=== PATIENT | female | born 1950 | race Caucasian/White ===

== ENCOUNTER → 2017-02-12 | Outpatient (CLI) | payer OTHER ==
[2017-02-12 11:52] LABS: HEMOGLOBIN 15.1 g/dL (11.7-16.4)
[2017-02-12 12:05] LABS: BLOOD UREA NITROGEN 16 mg/dL (7-18)
[2017-02-12 12:10] LABS: ASPARTATE AMINO TRANSFERASE 38 U/L (15-37)
== END | disposition home or self-care (01) ==
LOC: LAB 11:30
PROVIDERS: ATTEND Nurse Practitioner Family
DX: Z13.220 Encounter for screening for lipoid disorders (principal); Z00.00 Encounter for general adult medical examination without abnormal findings; R35.0 Frequency of micturition; I10 Essential (primary) hypertension
CPT/HCPCS: 36415; 80053; 81001; 85025

== ENCOUNTER 2017-04-30 21:33 | Emergency (ER) | payer OTHER ==
[~2017-04-30] VITALS: Ht 165.1 cm; Wt 72.6 kg
[2017-04-30] MEDS ORDERED: CARV3.122 PO (22:08)
[2017-04-30] MEDS ORDERED: CLON0.1T PO (22:08)
[2017-04-30] MEDS ORDERED: FLUC50TA3 PO (22:08)
[2017-04-30 23:00] VITALS: BP 153/88
== END 2017-04-30 23:29 | disposition home or self-care (01) ==
LOC: ED 22:14
DX: R51 Headache (principal); I10 Essential (primary) hypertension
CPT/HCPCS: 99283

== ENCOUNTER 2017-08-03 01:22 | Emergency (ER) | payer OTHER ==
[~2017-08-03] VITALS: Ht 165.1 cm; Wt 73.6 kg
[~2017-08-03 01:22] MED LIST: CARV3.122 PO; CLON0.1T PO; FLUC50TA3 PO
[2017-08-03] MEDS ORDERED: CARVEDILOL 12.5 MG TABLET PO ONE (02:00)
[2017-08-03] MEDS ORDERED: IRBE75TA10 PO (02:08)
[2017-08-03] MEDS ORDERED: CARV12.52 PO (02:08)
[2017-08-03] MEDS ORDERED: FLEC100T PO (02:08)
[2017-08-03 02:18] VITALS: BP 161/94
== END 2017-08-03 02:50 | disposition home or self-care (01) ==
LOC: ED 02:34
DX: I48.2 Chronic atrial fibrillation (principal); Z88.0 Allergy status to penicillin; Z88.8 Allergy status to other drugs, medicaments and biological substances; I10 Essential (primary) hypertension
CPT/HCPCS: 93005; 99283

== ENCOUNTER 2017-10-11 01:56 | Emergency (ER) | payer OTHER ==
[~2017-10-11] VITALS: Ht 165.1 cm; Wt 73.5 kg
[~2017-10-11 01:56] MED LIST changes: +CARV12.52 PO; +FLEC100T PO; +IRBE75TA10 PO
[2017-10-11] MEDS ORDERED: AMLODIPINE 5 MG TABLET PO ONE (02:30)
[2017-10-11] MEDS ORDERED: NITROGLYCERIN OINT 2%, 1GM TP ONE ×2 (02:30→02:47)
[2017-10-11] MEDS ORDERED: IBUPROFEN 200 MG TABLET PO ONE (02:30)
[2017-10-11] MEDS ORDERED: IBUPROFEN 200 MG TABLET ONE (02:47)
[2017-10-11 02:48] LABS: HEMATOCRIT 44.5 % (34.6-47.8); WHITE BLOOD COUNT 6.7 x10^3/uL (3.4-10)
[2017-10-11 03:00] LABS: BLOOD UREA NITROGEN 27 mg/dL (7-18)
[2017-10-11 03:06] LABS: IS PT STATUS REG ER OR PRE ER? YES
[2017-10-11 04:23] VITALS: BP 131/94
== END 2017-10-11 04:26 | disposition home or self-care (01) ==
LOC: ED 02:26
DX: I10 Essential (primary) hypertension (principal); I48.91 Unspecified atrial fibrillation; Z87.891 Personal history of nicotine dependence; Z88.0 Allergy status to penicillin
CPT/HCPCS: 36415; 80048; 82040; 84484; 85025; 93005; 99285

== ENCOUNTER 2017-10-12 03:22 | Emergency (ER) | payer OTHER ==
[~2017-10-12] VITALS: Ht 165.1 cm; Wt 73.7 kg
[2017-10-12] MEDS ORDERED: SODIUM CHLORIDE 0.9% 1,000ML IVBOLUS ONE (04:00)
[2017-10-12] MEDS ORDERED: DIPHENHYDRAMINE 50 MG/ML, 1ML IVPush ONE (04:00)
[2017-10-12] MEDS ORDERED: METOCLOPRAMIDE 5 MG/ML, 2ML IVPush ONE (04:00)
[2017-10-12] MEDS ORDERED: DIPHENHYDRAMINE 50 MG/ML, 1ML ONE (04:04)
[2017-10-12] MEDS ORDERED: METOCLOPRAMIDE 5 MG/ML, 2ML ONE (04:04)
[2017-10-12] MEDS ORDERED: OXYcodone/APAP 5/325MG TABLET ONE (05:20)
[2017-10-12] MEDS ORDERED: OXYcodone/APAP 5/325MG TABLET PO ONE (05:30)
[2017-10-12] MEDS ORDERED: NAPROXEN 500 MG TABLET PO ONE (05:30)
[2017-10-12 05:58] VITALS: BP 99/55
== END 2017-10-12 05:59 | disposition home or self-care (01) ==
LOC: ED 03:59
DX: I10 Essential (primary) hypertension (principal); R51 Headache; I48.91 Unspecified atrial fibrillation
CPT/HCPCS: 70450; 96361; 96374; 96375; 99284; J1200; J2765; J7030

== ENCOUNTER 2017-10-24 19:20 | Inpatient (IN) | payer OTHER ==
[~2017-10-24] VITALS: Ht 165.1 cm; Wt 71.4 kg
[2017-10-24 21:11] LABS: HEMATOCRIT 41.1 % (34.6-47.8); HEMOGLOBIN 13.8 g/dL (11.7-16.4); WHITE BLOOD COUNT 7.7 x10^3/uL (3.4-10)
[2017-10-24 21:25] LABS: BLOOD UREA NITROGEN 18 mg/dL (7-18)
[2017-10-24 21:30] LABS: IS PT STATUS REG ER OR PRE ER? YES
[2017-10-24] MEDS ORDERED: ASPIRIN 81 MG TABLET CHEW PO ONE (22:00)
[2017-10-24] MEDS ORDERED: HEPARIN 25,000 UNITS/500ML PMX 500 ML IV PRN (22:00)
[2017-10-24] MEDS ORDERED: HEPARIN 5,000 UNITS/ML, 1ML IV PRN (22:00)
[2017-10-24] MEDS ORDERED: HEPARIN 5,000 UNITS/ML, 1ML IV ONE (22:00)
[2017-10-24] MEDS ORDERED: HEPARIN 25,000 UNITS/500ML PMX 500 ML ONE (22:21)
[2017-10-24] MEDS ORDERED: ASPIRIN 81 MG TABLET CHEW ONE (22:23)
[2017-10-24] MEDS ORDERED: HEPARIN 5,000 UNITS/ML, 1ML ONE (22:33)
[2017-10-25 00:52] VITALS: BP 108/83
[2017-10-25] MEDS: SODIUM CHLORIDE 0.9% 1,000 ML IV SCH ×4 (01:28→20:15)
[2017-10-25] MEDS ORDERED: ONDANSETRON ODT 4 MG PO PRN (01:30)
[2017-10-25] MEDS ORDERED: NITROGLYCERIN 0.4 MG BOTTLE (25 TABS) SL PRN ×2 (01:30)
[2017-10-25] MEDS ORDERED: NITROGLYCERIN 0.4 MG/SPRAY SL PRN (01:30)
[2017-10-25 02:34] LABS: IS PT STATUS REG ER OR PRE ER? NO
[2017-10-25] MEDS ORDERED: ACETAMINOPHEN 325 MG TABLET PO PRN (03:00)
[2017-10-25 04:59] LABS: HEMATOCRIT 37.2 % (34.6-47.8); HEMOGLOBIN 12.5 g/dL (11.7-16.4); WHITE BLOOD COUNT 7.7 x10^3/uL (3.4-10)
[2017-10-25 05:10] LABS: ASPARTATE AMINO TRANSFERASE 62 U/L (15-37); BLOOD UREA NITROGEN 19 mg/dL (7-18)
[2017-10-25 07:36] VITALS: BP 107/76
[2017-10-25] MEDS ORDERED: METOPROLOL TARTRATE 25 MG TABLET PO SCH (09:00)
[2017-10-25] MEDS ORDERED: FENTANYL PF 100 MCG/2ML ONE (13:09)
[2017-10-25] MEDS ORDERED: TICAGRELOR 90 MG TABLET ONE (13:09)
[2017-10-25] MEDS ORDERED: MIDAZOLAM 1 MG/ML, 5ML ONE (13:09)
[2017-10-25] MEDS ORDERED: VERAPAMIL 2.5 MG/ML, 2ML ONE (13:09)
[2017-10-25] MEDS ORDERED: HEPARIN 1,000 UNITS/ML, 10ML ONE (13:10)
[2017-10-25] MEDS ORDERED: LIDOCAINE 2%, 20ML ONE (13:10)
[2017-10-25] MEDS ORDERED: BIVALIRUDIN 250 MG ONE (13:10)
[2017-10-25 15:00] VITALS: BP 98/58
[2017-10-25 18:30] VITALS: BP 95/64
[2017-10-25 20:11] VITALS: BP 106/73
[2017-10-25] MEDS: METOPROLOL TARTRATE 25 MG TABLET PO SCH (20:14)
[2017-10-25] MEDS ORDERED: ATORVASTATIN 40 MG TABLET PO SCH (21:00)
[2017-10-26 01:30] VITALS: BP 112/75
[2017-10-26] MEDS: SODIUM CHLORIDE 0.9% 1,000 ML IV SCH (04:55)
[2017-10-26 08:35] VITALS: BP 123/81
[2017-10-26] MEDS: METOPROLOL TARTRATE 25 MG TABLET PO SCH (09:00)
[2017-10-26] MEDS ORDERED: LISINOPRIL 5 MG TABLET PO SCH (09:00)
[2017-10-26] MEDS ORDERED: METO25TA35 PO (10:30)
[2017-10-26] MEDS ORDERED: ATOR40TA78 PO (10:30)
[2017-10-26] MEDS ORDERED: ASPI-515 PO (10:36)
== END 2017-10-26 12:10 | disposition home or self-care (01) | DRG 282 ==
LOC: ED 20:15 → EDIP 23:29 → 5SO 10-25 00:40 → DCLOUNGE 10-26 11:48
PROVIDERS: ADMIT Surgery; ATTEND Family Medicine
PROC: 4A023N7 Measurement of Cardiac Sampling and Pressure, Left Heart, Percutaneous Approach (ICD-10-PCS; principal; 2017-10-25)
PROC: B2111ZZ Fluoroscopy of Multiple Coronary Arteries using Low Osmolar Contrast (ICD-10-PCS; 2017-10-25)
PROC: B2151ZZ Fluoroscopy of Left Heart using Low Osmolar Contrast (ICD-10-PCS; 2017-10-25)
PROC: 03HY32Z Insertion of Monitoring Device into Upper Artery, Percutaneous Approach (ICD-10-PCS; 2017-10-25)
DX: I21.4 Non-ST elevation (NSTEMI) myocardial infarction (principal); I48.2 Chronic atrial fibrillation; I11.9 Hypertensive heart disease without heart failure; I25.2 Old myocardial infarction; Z87.891 Personal history of nicotine dependence; Z79.82 Long term (current) use of aspirin; V43.52XA Car driver injured in collision with other type car in traffic accident, initial encounter; Y93.89 Activity, other specified; Y92.481 Parking lot as the place of occurrence of the external cause; Y99.8 Other external cause status
CPT/HCPCS: 36415; 71010; 80048; 80053; 82040; 83036; 83690; 83735; 84100; 84443; 84484; 85025; 85520; 85610; 85730; 93005; 93458; 96365; 96366; 99156; C1769; C1894; J0583; J1644; J2250; J3010; J3490; J7030; Q9967

== ENCOUNTER 2017-11-05 09:30 | Inpatient (IN) | payer OTHER ==
[~2017-11-05] VITALS: Ht 165.1 cm; Wt 62.8 kg
[~2017-11-05 09:30] MED LIST changes: +ASPI-515 PO; +ATOR40TA78 PO; +METO25TA35 PO
[2017-11-05] MEDS ORDERED: PLEASE ENTER HEIGHT AND WEIGHT MC SCH (11:00)
[2017-11-05] MEDS ORDERED: ACETAMINOPHEN 650 MG/20.3 ML UDC PO PRN (11:00)
[2017-11-05] MEDS ORDERED: BISACODYL 5 MG EC TABLET PO PRN (11:00)
[2017-11-05] MEDS ORDERED: SOTALOL 80MG TABLET PO SCH (11:00)
[2017-11-05] MEDS ORDERED: ZOLPIDEM 5MG TABLET PO PRN (11:00)
[2017-11-05] MEDS ORDERED: SOTALOL 80MG TABLET ONE (11:48)
[2017-11-05 12:11] VITALS: BP 136/72
[2017-11-05] MEDS ORDERED: AMIODARONE 200 MG TABLET ONE (12:30)
[2017-11-05] MEDS: PLEASE ENTER PATIENTS HEIGHT MC SCH ×2 (12:30→19:58)
[2017-11-05] MEDS: AMIODARONE 200 MG TABLET PO SCH (12:33)
[2017-11-05 13:13] LABS: ANION GAP 7 mmol/L (5-15); CALCIUM 9.5 mg/dL (8.5-10.1); CHLORIDE 104 mmol/L (98-107); CREATININE 0.82 mg/dL (0.55-1.02)
[2017-11-05 13:23] LABS: FREE T4 (FREE THYROXINE) 1.06 ng/dL (0.76-1.46)
[2017-11-05 18:53] VITALS: BP 126/83
[2017-11-05] MEDS: APIXABAN 5 MG TABLET PO SCH (19:59)
[2017-11-05] MEDS: ATORVASTATIN 40 MG TABLET PO SCH (19:59)
[2017-11-05] MEDS: SODIUM CHLORIDE FLUSH 10ML SYR IVF SCH (19:59)
[2017-11-06 01:48] VITALS: BP 120/82
[2017-11-06] MEDS: ACETAMINOPHEN 325 MG TABLET PO PRN ×2 (02:12→14:28)
[2017-11-06] MEDS: PLEASE ENTER PATIENTS HEIGHT MC SCH (03:44)
[2017-11-06 06:48] VITALS: BP 114/75
[2017-11-06] MEDS: SODIUM CHLORIDE FLUSH 10ML SYR IVF SCH ×2 (08:34→20:14)
[2017-11-06] MEDS: ASPIRIN 81 MG TABLET EC PO SCH (08:34)
[2017-11-06] MEDS: APIXABAN 5 MG TABLET PO SCH ×2 (08:34→20:18)
[2017-11-06] MEDS: AMIODARONE 200 MG TABLET PO SCH ×2 (08:34→20:19)
[2017-11-06] MEDS: FUROSEMIDE 20 MG TABLET PO SCH (08:35)
[2017-11-06 13:45] VITALS: BP 125/83
[2017-11-06 20:10] VITALS: BP 123/84
[2017-11-06] MEDS: ATORVASTATIN 40 MG TABLET PO SCH (20:18)
[2017-11-07 02:00] VITALS: BP 93/69
[2017-11-07 07:20] VITALS: BP 127/91
[2017-11-07] MEDS: FUROSEMIDE 20 MG TABLET PO SCH (09:39)
[2017-11-07] MEDS: AMIODARONE 200 MG TABLET PO SCH (09:39)
[2017-11-07] MEDS: ASPIRIN 81 MG TABLET EC PO SCH (09:40)
[2017-11-07] MEDS: APIXABAN 5 MG TABLET PO SCH ×2 (09:40→22:15)
[2017-11-07] MEDS: SODIUM CHLORIDE FLUSH 10ML SYR IVF SCH ×2 (09:40→22:16)
[2017-11-07 12:20] VITALS: BP 121/83
[2017-11-07 20:38] VITALS: BP 102/78
[2017-11-07] MEDS: ATORVASTATIN 40 MG TABLET PO SCH (22:15)
[2017-11-08 00:23] VITALS: BP 120/79
[2017-11-08] MEDS: ASPIRIN 81 MG TABLET EC PO SCH (06:24)
[2017-11-08 07:15] VITALS: BP 92/52
[2017-11-08] MEDS ORDERED: AMIODARONE 200 MG TABLET PO SCH (09:00)
[2017-11-08] MEDS: APIXABAN 5 MG TABLET PO SCH (09:02)
[2017-11-08] MEDS: FUROSEMIDE 20 MG TABLET PO SCH (09:02)
[2017-11-08] MEDS: SODIUM CHLORIDE FLUSH 10ML SYR IVF SCH (09:03)
[2017-11-08] MEDS ORDERED: APIX5TAB PO (11:40)
[2017-11-08] MEDS ORDERED: FURO20TA3 PO (11:40)
[2017-11-08] MEDS ORDERED: CARV12.52 PO (11:42)
== END 2017-11-08 13:15 | disposition home or self-care (01) | DRG 309 ==
LOC: 5SO 09:42
PROVIDERS: ADMIT Internal Medicine Cardiovascular Disease; ATTEND Internal Medicine Cardiovascular Disease
DX: I48.0 Paroxysmal atrial fibrillation (principal); D68.69 Other thrombophilia; I42.9 Cardiomyopathy, unspecified; I51.81 Takotsubo syndrome; I45.10 Unspecified right bundle-branch block; E78.5 Hyperlipidemia, unspecified; I10 Essential (primary) hypertension; Z79.82 Long term (current) use of aspirin; Z79.899 Other long term (current) drug therapy; Z87.891 Personal history of nicotine dependence; I25.2 Old myocardial infarction; Z88.0 Allergy status to penicillin; Z88.1 Allergy status to other antibiotic agents
CPT/HCPCS: 36415; 80048; 84439; 84443; 85014; 85018; 93005; 93306

== ENCOUNTER → 2018-03-17 | Outpatient (CLI) | payer OTHER ==
[~2018-03-17] MED LIST changes: +APIX5TAB PO; +FURO20TA3 PO
== END | disposition home or self-care (01) ==
LOC: CVU 13:45
PROVIDERS: ATTEND Internal Medicine Cardiovascular Disease
DX: I07.1 Rheumatic tricuspid insufficiency (principal); I10 Essential (primary) hypertension; E78.5 Hyperlipidemia, unspecified
CPT/HCPCS: 93306

== ENCOUNTER → 2018-03-19 | Outpatient (CLI) | payer OTHER ==
[2018-03-19 10:22] LABS: ALANINE AMINOTRANSFERASE 42 U/L (12-78); ALBUMIN 3.5 g/dL (3.4-5.0); ANION GAP 3 mmol/L (5-15); CALCIUM 8.7 mg/dL (8.5-10.1); CHLORIDE 110 mmol/L (98-107); CREATININE 0.72 mg/dL (0.55-1.02)
[2018-03-19 10:25] LABS: ALKALINE PHOSPHATASE 77 U/L (45-117); BILIRUBIN,TOTAL 0.4 mg/dL (0.2-1.0); CHOL/HDL RATIO 1.7; CHOLESTEROL, TOTAL 137 mg/dL (140-239); HDL CHOL % 60 % (28-40); HDL CHOLESTEROL (DIRECT) 82 mg/dL (40-60); LDL CHOLESTEROL,CALCULATED 43 mg/dL (54-169); LDL/HDL RATIO 0.5 (0.5-3.0); TOTAL PROTEIN 6.8 g/dL (6.4-8.2); TRIGLYCERIDES 59 mg/dL (50-200); VLDL CHOLESTEROL 12 mg/dL (0-25)
== END ==
LOC: LAB 09:48
PROVIDERS: ATTEND Internal Medicine Cardiovascular Disease
DX: I10 Essential (primary) hypertension (principal); I48.0 Paroxysmal atrial fibrillation; I51.81 Takotsubo syndrome
CPT/HCPCS: 36415; 80053; 80061

== ENCOUNTER → 2018-10-06 | Outpatient (CLI) | payer OTHER | END | disposition home or self-care (01) | LOC: CARD 10:40 | PROVIDERS: ATTEND Internal Medicine Cardiovascular Disease | DX: I48.0 Paroxysmal atrial fibrillation (principal); I11.9 Hypertensive heart disease without heart failure | CPT/HCPCS: 93017 ==

== ENCOUNTER 2018-10-30 15:36 | Emergency (ER) | payer OTHER ==
[~2018-10-30] VITALS: Ht 165.1 cm; Wt 71.4 kg
[~2018-10-30 15:36] MED LIST changes: -CLON0.1T PO; +CLON0.1T22 PO
[2018-10-30 15:42] VITALS: BP 184/110
== END 2018-10-30 17:07 | disposition home or self-care (01) ==
LOC: ED 15:59
DX: S80.02XA Contusion of left knee, initial encounter (principal); I48.91 Unspecified atrial fibrillation; I10 Essential (primary) hypertension; Z87.891 Personal history of nicotine dependence; W01.0XXA Fall on same level from slipping, tripping and stumbling without subsequent striking against object, initial encounter; Y93.89 Activity, other specified; Y92.89 Other specified places as the place of occurrence of the external cause; Y99.8 Other external cause status
CPT/HCPCS: 99283

== ENCOUNTER → 2019-03-27 | Outpatient (CLI) | payer OTHER ==
[~2019-03-27] MED LIST changes: +DABI150C PO; +FLEC50TA25 PO
[2019-03-27 11:42] LABS: BASOPHILS # (AUTO) 0.02 x10^3/uL (0-0.1); BASOPHILS % (AUTO) 1 % (0-1); EOSINOPHILS # (AUTO) 0.13 x10^3/uL (0-0.4); EOSINOPHILS % (AUTO) 3 % (1-7); LYMPHOCYTES % (AUTO) 38 % (22-44); MD NO; MEAN CORPUSCULAR HEMOGLOBIN 29.7 pg (27.0-34.8); MEAN CORPUSCULAR HGB CONC 32.2 g/dL (32.4-35.8); MEAN CORPUSCULAR VOLUME 92.1 fL (80-100); MEAN PLATELET VOLUME 8.8 fL (7.4-10.4); MONOCYTES # (AUTO) 0.35 x10^3/uL (0.2-0.8); MONOCYTES % (AUTO) 9 % (2-9); NEUTROPHILS # (AUTO) 1.99 x10^3/uL (1.8-6.8); NEUTROPHILS % (AUTO) 50 % (42-75); PLATELET COUNT 214 x10^3/uL (130-400); RED BLOOD COUNT 4.82 x10^6/uL (3.82-5.3); RED CELL DISTRIBUTION WIDTH 14.6 % (9.6-15.2)
[2019-03-27 12:04] LABS: MICROSCOPIC NOT IND
[2019-03-27 12:13] LABS: CULTURE INDICATED? NO
[2019-03-27 12:55] LABS: ALANINE AMINOTRANSFERASE 21 U/L (12-78); ALBUMIN 3.8 g/dL (3.4-5.0); ANION GAP 8 mmol/L (5-15); CALCIUM 8.8 mg/dL (8.5-10.1); CHLORIDE 108 mmol/L (98-107)
[2019-03-27 13:03] LABS: ALKALINE PHOSPHATASE 54 U/L (45-117); BILIRUBIN,TOTAL 0.6 mg/dL (0.2-1.0); CHOL/HDL RATIO 2.7; CHOLESTEROL, TOTAL 249 mg/dL (140-239); CREATININE 0.81 mg/dL (0.55-1.02); FREE T4 (FREE THYROXINE) 0.89 ng/dL (0.76-1.46); HDL CHOL % 37 % (28-40); HDL CHOLESTEROL (DIRECT) 92 mg/dL (40-60); LDL CHOLESTEROL,CALCULATED 146 mg/dL (54-169); LDL/HDL RATIO 1.6 (0.5-3.0); TOTAL PROTEIN 7.2 g/dL (6.4-8.2); TRIGLYCERIDES 56 mg/dL (50-200); VLDL CHOLESTEROL 11 mg/dL (0-25)
== END | disposition home or self-care (01) ==
LOC: LAB 11:22
PROVIDERS: ATTEND Nurse Practitioner Family
DX: Z00.00 Encounter for general adult medical examination without abnormal findings (principal); I10 Essential (primary) hypertension; E78.5 Hyperlipidemia, unspecified; I48.0 Paroxysmal atrial fibrillation
CPT/HCPCS: 36415; 80053; 80061; 81003; 82306; 84439; 84443; 85025

== ENCOUNTER 2019-04-27 09:54 | Day surgery (SDC) | payer OTHER ==
[~2019-04-27] VITALS: Ht 165.1 cm; Wt 69.1 kg
[2019-04-27] MEDS ORDERED: LIDOCAINE 2%, 20ML ONE (10:31)
== END 2019-04-27 12:06 | disposition home or self-care (01) ==
LOC: CACL 09:54
PROVIDERS: ATTEND Internal Medicine Cardiovascular Disease
DX: Z45.010 Encounter for checking and testing of cardiac pacemaker pulse generator [battery] (principal); I48.0 Paroxysmal atrial fibrillation; I11.9 Hypertensive heart disease without heart failure; I25.2 Old myocardial infarction; Z79.01 Long term (current) use of anticoagulants; Z79.899 Other long term (current) drug therapy; Z88.0 Allergy status to penicillin; Z88.8 Allergy status to other drugs, medicaments and biological substances
CPT/HCPCS: 33285; 33286; C1764

== ENCOUNTER 2019-05-25 15:58 | Outpatient (CLI) | payer OTHER | END 2019-05-25 23:59 | disposition home or self-care (01) | LOC: CFH 15:58 | PROVIDERS: ATTEND Orthopaedic Surgery Adult Reconstructive Orthopaedic Surgery | DX: S83.281A Other tear of lateral meniscus, current injury, right knee, initial encounter (principal); M25.461 Effusion, right knee; X58.XXXA Exposure to other specified factors, initial encounter; Y93.89 Activity, other specified; Y92.89 Other specified places as the place of occurrence of the external cause; Y99.8 Other external cause status ==

== ENCOUNTER → 2019-11-07 | Outpatient (CLI) | payer OTHER ==
[2019-11-07 18:13] LABS: CRYPTOSPORIDIUM ANTIGEN Negative (Negative)
[2019-11-07 18:22] LABS: OCCULT BLOOD NEGATIVE (NEGATIVE)
[2019-11-07 18:28] LABS: STOOL FOR LEUKOCYTES NONE SEEN (NEGATIVE)
== END | disposition home or self-care (01) ==
LOC: LAB 08:07
PROVIDERS: ATTEND Family Medicine
DX: K59.00 Constipation, unspecified (principal); R10.13 Epigastric pain
CPT/HCPCS: 82272; 87046; 87328; 87329; 87427; 89055

== ENCOUNTER 2019-11-09 13:38 | Emergency (ER) | payer OTHER ==
[~2019-11-09] VITALS: Ht 165.1 cm; Wt 71.5 kg
--- NOTE | 2019-11-09 14:06 | NUR ---
PT REPORTS SLIP AND FALL AT MIDNIGHT 11/08, STATES INTERMITTENT NAUSEA AND INCREASED HEADACHE WHEN TURNING TO THE LEFT SIDE. DENIES KO AT THAT TIME. DR. SCHUSTER AT BEDSIDE TO SEE PATIENT. AWAITING ORDERS.
--- NOTE | 2019-11-09 14:17 | NUR ---
REPORT FROM BELÉN
[2019-11-09 14:22] LABS: ALBUMIN 3.8 g/dL (3.4-5.0); ANION GAP 6 mmol/L (5-15); BASOPHILS # (AUTO) 0.02 x10^3/uL (0-0.1); BASOPHILS % (AUTO) 0 % (0-1); CALCIUM 8.6 mg/dL (8.5-10.1); CHLORIDE 107 mmol/L (98-107); CREATININE 0.85 mg/dL (0.55-1.02); EOSINOPHILS # (AUTO) 0.12 x10^3/uL (0-0.4); EOSINOPHILS % (AUTO) 3 % (1-7); LYMPHOCYTES # (AUTO) 1.79 x10^3/uL (1-3.4); LYMPHOCYTES % (AUTO) 43 % (22-44); MD NO; MEAN CORPUSCULAR HEMOGLOBIN 30.8 pg (27.0-34.8); MEAN CORPUSCULAR HGB CONC 33.5 g/dL (32.4-35.8); MEAN PLATELET VOLUME 9.4 fL (7.4-10.4); MONOCYTES # (AUTO) 0.41 x10^3/uL (0.2-0.8); MONOCYTES % (AUTO) 10 % (2-9); NEUTROPHILS # (AUTO) 1.79 x10^3/uL (1.8-6.8); NEUTROPHILS % (AUTO) 43 % (42-75); PLATELET COUNT 221 x10^3/uL (130-400); RED BLOOD COUNT 4.93 x10^6/uL (3.82-5.3); RED CELL DISTRIBUTION WIDTH 14.6 % (9.6-15.2)
--- NOTE | 2019-11-09 14:54 | NUR ---
FLOAT RN: PT RESTING IN ROOM. NO ACUTE DISTRESS NOTED. VS STABLE. CALL LIGHT IN PLACE. WILL CONTINUE TO MONITOR WHILE PRIMARY RN IS ON BREAK.
[2019-11-09 14:56] VITALS: BP 164/95
--- NOTE | 2019-11-09 15:18 | NUR ---
Patient/Caregiver given discharge instructions and they have confirmed that they understand the instructions. Patient ambulatory with steady gait.
== END 2019-11-09 15:20 | disposition home or self-care (01) ==
LOC: ED 14:25
DX: S06.0X0A Concussion without loss of consciousness, initial encounter (principal); R51 Headache; I25.2 Old myocardial infarction; I10 Essential (primary) hypertension; I48.91 Unspecified atrial fibrillation; W01.0XXA Fall on same level from slipping, tripping and stumbling without subsequent striking against object, initial encounter; Y93.89 Activity, other specified; Y92.89 Other specified places as the place of occurrence of the external cause; Y99.8 Other external cause status
CPT/HCPCS: 36415; 70450; 80048; 82040; 85025; 93005; 99284

== ENCOUNTER → 2020-03-14 | Outpatient (CLI) | payer OTHER ==
[~2020-03-14] MED LIST changes: -IRBE75TA10 PO; +IRBE75TA6 PO
== END | disposition home or self-care (01) ==
LOC: CFH 12:48
PROVIDERS: ATTEND Nurse Practitioner Family
DX: I37.1 Nonrheumatic pulmonary valve insufficiency (principal); I10 Essential (primary) hypertension; I51.81 Takotsubo syndrome
CPT/HCPCS: 93306

== ENCOUNTER 2020-04-08 03:06 | Inpatient (IN) | payer OTHER, MEDICARE ==
[~2020-04-08] VITALS: Ht 165.1 cm; Wt 74.2 kg
[2020-04-08] MEDS ORDERED: SODIUM CHLORIDE FLUSH 10ML SYR IVF ONE (03:30)
--- NOTE | 2020-04-08 03:43 | NUR ---
iv site started, labs drawn. monitors applied, siderails up x2, call light within reach
[2020-04-08 03:50] LABS: BASOPHILS # (AUTO) 0.03 x10^3/uL (0-0.1); BASOPHILS % (AUTO) 1 % (0-1); EOSINOPHILS # (AUTO) 0.17 x10^3/uL (0-0.4); EOSINOPHILS % (AUTO) 3 % (1-7); LYMPHOCYTES # (AUTO) 2.06 x10^3/uL (1-3.4); LYMPHOCYTES % (AUTO) 41 % (22-44); MD NO; MEAN CORPUSCULAR HEMOGLOBIN 30.4 pg (27.0-34.8); MEAN CORPUSCULAR HGB CONC 32.9 g/dL (32.4-35.8); MEAN CORPUSCULAR VOLUME 92.2 fL (80-100); MEAN PLATELET VOLUME 9.5 fL (7.4-10.4); MONOCYTES # (AUTO) 0.48 x10^3/uL (0.2-0.8); MONOCYTES % (AUTO) 10 % (2-9); NEUTROPHILS # (AUTO) 2.34 x10^3/uL (1.8-6.8); NEUTROPHILS % (AUTO) 46 % (42-75); PLATELET COUNT 221 x10^3/uL (130-400); RED BLOOD COUNT 5.14 x10^6/uL (3.82-5.3); RED CELL DISTRIBUTION WIDTH 14.9 % (9.6-15.2)
[2020-04-08 04:00] LABS: ALBUMIN 3.9 g/dL (3.4-5.0); ANION GAP 6 mmol/L (5-15); CALCIUM 8.8 mg/dL (8.5-10.1); CHLORIDE 105 mmol/L (98-107); CREATININE 0.92 mg/dL (0.55-1.02)
[2020-04-08] MEDS ORDERED: DILTIAZEM 5 MG/ML, 5ML ONE (04:00)
[2020-04-08] MEDS ORDERED: DILTIAZEM 5 MG/ML, 5ML IV ONE (04:00)
--- NOTE | 2020-04-08 04:03 | NUR ---
PT MEDICATED PER MAR
[2020-04-08 04:04] LABS: TROPONIN I < 0.015 ng/mL (0.000-0.045)
[2020-04-08] MEDS ORDERED: METO25TA35 PO (04:05)
--- NOTE | 2020-04-08 05:11 | NUR ---
PTT UP TO RR WITH STEADY GAIT
[2020-04-08] MEDS ORDERED: SODIUM CHLORIDE 0.9% 1,000 ML IV SCH (05:23)
[2020-04-08] MEDS ORDERED: BISACODYL 10 MG SUPP PR PRN (05:30)
[2020-04-08] MEDS ORDERED: ONDANSETRON ODT 4 MG PO PRN (05:30)
[2020-04-08] MEDS ORDERED: morphine SULFATE 10 MG/ML, 1ML IVPush PRN (05:30)
[2020-04-08] MEDS ORDERED: ACETAMINOPHEN 325 MG TABLET PO PRN (05:30)
[2020-04-08] MEDS ORDERED: POLYETHYLENE GLYCOL 17 GM PACKET PO PRN (05:30)
[2020-04-08] MEDS ORDERED: ONDANSETRON 2MG/ML, 2ML IVPush PRN (05:30)
[2020-04-08] MEDS ORDERED: DOCUSATE 100 MG CAPSULE PO PRN (05:30)
[2020-04-08] MEDS ORDERED: PROMETHAZINE 25 MG/ML, 1ML IM PRN (05:30)
[2020-04-08] MEDS ORDERED: OXYcodone IR 5MG TABLET PO PRN (05:30)
[2020-04-08] MEDS ORDERED: hydrALAzine 20 MG/ML, 1ML IVPush PRN (05:30)
[2020-04-08] MEDS ORDERED: METOPROLOL TARTRATE 25 MG TAB PO SCH (06:00)
[2020-04-08 06:29] VITALS: BP 161/93
[2020-04-08 06:37] LABS: FREE T4 (FREE THYROXINE) 1.09 ng/dL (0.76-1.46); TROPONIN I < 0.015 ng/mL (0.000-0.045)
[2020-04-08] MEDS: HEPARIN 5,000 UNITS/ML, 1ML SQ SCH ×3 (06:48→20:06)
[2020-04-08 07:13] LABS: MICROSCOPIC NOT IND
[2020-04-08 07:37] VITALS: BP 143/84
[2020-04-08] MEDS: FLECAINIDE 50MG TABLET PO SCH ×2 (08:45→20:06)
[2020-04-08 11:10] LABS: TROPONIN I < 0.015 ng/mL (0.000-0.045)
[2020-04-08 12:42] VITALS: BP 135/81
[2020-04-08] MEDS: CARVEDILOL 6.25 MG TABLET PO SCH (17:53)
[2020-04-08] MEDS: CARVEDILOL 12.5 MG TABLET PO SCH (17:53)
[2020-04-08 19:42] VITALS: BP 110/73
[2020-04-09] MEDS: HEPARIN 5,000 UNITS/ML, 1ML SQ SCH (01:40)
[2020-04-09 04:37] VITALS: BP 117/60
[2020-04-09] MEDS: CARVEDILOL 12.5 MG TABLET PO SCH (04:45)
[2020-04-09] MEDS: CARVEDILOL 6.25 MG TABLET PO SCH (04:45)
[2020-04-09 07:06] LABS: CHLORIDE 108 mmol/L (98-107)
[2020-04-09 07:08] VITALS: BP 124/79
[2020-04-09 07:15] LABS: ALANINE AMINOTRANSFERASE 23 U/L (12-78); ALBUMIN 3.2 g/dL (3.4-5.0); ALKALINE PHOSPHATASE 47 U/L (45-117); ANION GAP 6 mmol/L (5-15); BILIRUBIN,TOTAL 0.5 mg/dL (0.2-1.0); CALCIUM 8.4 mg/dL (8.5-10.1); CHOL/HDL RATIO 2.8; CHOLESTEROL, TOTAL 235 mg/dL (140-239); CREATININE 0.72 mg/dL (0.55-1.02); HDL CHOL % 36 % (28-40); HDL CHOLESTEROL (DIRECT) 84 mg/dL (40-60); LDL CHOLESTEROL,CALCULATED 125 mg/dL (54-169); LDL/HDL RATIO 1.5 (0.5-3.0); MEAN CORPUSCULAR HEMOGLOBIN 30.7 pg (27.0-34.8); MEAN CORPUSCULAR HGB CONC 33.2 g/dL (32.4-35.8); MEAN CORPUSCULAR VOLUME 92.4 fL (80-100); MEAN PLATELET VOLUME 9.6 fL (7.4-10.4); PLATELET COUNT 175 x10^3/uL (130-400); RED BLOOD COUNT 4.31 x10^6/uL (3.82-5.3); RED CELL DISTRIBUTION WIDTH 15.1 % (9.6-15.2); TOTAL PROTEIN 6.6 g/dL (6.4-8.2); TRIGLYCERIDES 131 mg/dL (50-200); VLDL CHOLESTEROL 26 mg/dL (0-25)
[2020-04-09 07:17] LABS: BASOPHILS # (AUTO) 0.03 x10^3/uL (0-0.1); BASOPHILS % (AUTO) 1 % (0-1); EOSINOPHILS # (AUTO) 0.14 x10^3/uL (0-0.4); EOSINOPHILS % (AUTO) 4 % (1-7); LYMPHOCYTES # (AUTO) 1.81 x10^3/uL (1-3.4); LYMPHOCYTES % (AUTO) 46 % (22-44); MD NO; MONOCYTES # (AUTO) 0.34 x10^3/uL (0.2-0.8); MONOCYTES % (AUTO) 9 % (2-9); NEUTROPHILS # (AUTO) 1.63 x10^3/uL (1.8-6.8); NEUTROPHILS % (AUTO) 41 % (42-75)
[2020-04-09] MEDS ORDERED: CARV6.2512 PO (07:19)
[2020-04-09] MEDS: FLECAINIDE 50MG TABLET PO SCH (08:07)
== END 2020-04-09 10:53 | disposition home or self-care (01) | DRG 309 ==
LOC: ED 04:34 → EDIP 04:55 → 5SO 06:26
PROVIDERS: ADMIT Internal Medicine; ATTEND Internal Medicine
DX: I48.0 Paroxysmal atrial fibrillation (principal); I51.81 Takotsubo syndrome; D68.69 Other thrombophilia; R07.9 Chest pain, unspecified; I10 Essential (primary) hypertension; I37.1 Nonrheumatic pulmonary valve insufficiency; Z80.1 Family history of malignant neoplasm of trachea, bronchus and lung; Z82.49 Family history of ischemic heart disease and other diseases of the circulatory system; Z87.891 Personal history of nicotine dependence
CPT/HCPCS: 36415; 71045; 80048; 80053; 80061; 81003; 82040; 83036; 83735; 84439; 84443; 84484; 85025; 93005; 93308; 93321; 93325; G0378; J1644; J7030

== ENCOUNTER → 2020-06-13 | Outpatient (CLI) | payer OTHER ==
[~2020-06-13] MED LIST changes: +CARV6.2512 PO; +REGADENOSON 0.4 MG/5 ML SYRINGE ONE
== END | disposition home or self-care (01) ==
LOC: RAD 12:53
PROVIDERS: ATTEND Nurse Practitioner Family
DX: I51.81 Takotsubo syndrome (principal); R07.9 Chest pain, unspecified
CPT/HCPCS: 78452; 93017; A9502; J2785

== ENCOUNTER → 2020-06-19 | Outpatient (CLI) | payer OTHER ==
[~2020-06-19] MED LIST changes: +OMNIPAQUE 350 MG/ML, 150 ML BOTTLE ONE; -REGADENOSON 0.4 MG/5 ML SYRINGE ONE
== END | disposition home or self-care (01) ==
LOC: CFH 13:49
PROVIDERS: ATTEND Internal Medicine Cardiovascular Disease
DX: I48.91 Unspecified atrial fibrillation (principal); D17.79 Benign lipomatous neoplasm of other sites
CPT/HCPCS: 75572; 82565; Q9967

== ENCOUNTER → 2020-06-21 | Outpatient (CLI) | payer OTHER ==
[~2020-06-21] MED LIST changes: -OMNIPAQUE 350 MG/ML, 150 ML BOTTLE ONE
[2020-06-21 09:49] LABS: BASOPHILS # (AUTO) 0.03 x10^3/uL (0-0.1); BASOPHILS % (AUTO) 1 % (0-1); EOSINOPHILS # (AUTO) 0.16 x10^3/uL (0-0.4); EOSINOPHILS % (AUTO) 4 % (1-7); LYMPHOCYTES # (AUTO) 1.67 x10^3/uL (1-3.4); LYMPHOCYTES % (AUTO) 40 % (22-44); MD NO; MEAN CORPUSCULAR HEMOGLOBIN 29.9 pg (27.0-34.8); MEAN CORPUSCULAR HGB CONC 32.3 g/dL (32.4-35.8); MEAN CORPUSCULAR VOLUME 92.7 fL (80-100); MEAN PLATELET VOLUME 8.9 fL (7.4-10.4); MONOCYTES # (AUTO) 0.41 x10^3/uL (0.2-0.8); MONOCYTES % (AUTO) 10 % (2-9); NEUTROPHILS # (AUTO) 1.95 x10^3/uL (1.8-6.8); NEUTROPHILS % (AUTO) 46 % (42-75); PLATELET COUNT 212 x10^3/uL (130-400); RED CELL DISTRIBUTION WIDTH 14.5 % (9.6-15.2)
[2020-06-21 09:56] LABS: INTERNATIONAL NORMALIZED RATIO 0.97 (0.93-1.1)
[2020-06-21 10:01] LABS: ALANINE AMINOTRANSFERASE 23 U/L (12-78); ANION GAP 5 mmol/L (5-15); CHLORIDE 108 mmol/L (98-107); CREATININE 0.82 mg/dL (0.55-1.02)
[2020-06-21 10:27] LABS: ALKALINE PHOSPHATASE 68 U/L (45-117); BILIRUBIN,TOTAL 0.5 mg/dL (0.2-1.0); CHOL/HDL RATIO 2.6; CHOLESTEROL, TOTAL 251 mg/dL (140-239); HDL CHOL % 38 % (28-40); HDL CHOLESTEROL (DIRECT) 96 mg/dL (40-60); LDL CHOLESTEROL,CALCULATED 143 mg/dL (54-169); LDL/HDL RATIO 1.5 (0.5-3.0); T4 (THYROXINE) 9.1 mcg/dL (4.8-13.9); TOTAL PROTEIN 7.5 g/dL (6.4-8.2); TRIGLYCERIDES 58 mg/dL (50-200); VLDL CHOLESTEROL 12 mg/dL (0-25)
== END | disposition home or self-care (01) ==
LOC: RAD 09:34
PROVIDERS: ATTEND Internal Medicine Cardiovascular Disease
DX: Z01.810 Encounter for preprocedural cardiovascular examination (principal); Z11.59 Encounter for screening for other viral diseases; I10 Essential (primary) hypertension; R63.5 Abnormal weight gain; I48.0 Paroxysmal atrial fibrillation
CPT/HCPCS: 36415; 71046; 80053; 80061; 84436; 84443; 84480; 84481; 85025; 85610; 85730; 87635

== ENCOUNTER 2020-06-27 05:41 | Observation (INO) | payer OTHER ==
[~2020-06-27] VITALS: Ht 165.1 cm; Wt 69.4 kg
[2020-06-27] MEDS ORDERED: SODIUM CHLORIDE 0.9% 1,000 ML IV SCH (06:31)
[2020-06-27] MEDS ORDERED: DABI150C PO (06:43)
[2020-06-27] MEDS ORDERED: CARV3.1212 PO (06:43)
[2020-06-27] MEDS ORDERED: METO50TA82 PO (06:43)
[2020-06-27] MEDS ORDERED: MULT1TAB57 PO (06:45)
[2020-06-27 06:46] VITALS: BP 146/86
[2020-06-27] MEDS ORDERED: SODIUM CHLORIDE 0.9% 1,000 ML IV ONE (07:00)
[2020-06-27] MEDS ORDERED: FENTANYL PF 250 MCG/5ML ONE (07:57)
[2020-06-27] MEDS ORDERED: MIDAZOLAM 1 MG/ML, 2ML ONE (07:57)
[2020-06-27] MEDS ORDERED: PROPOFOL 50 ML ONE (07:57)
[2020-06-27] MEDS ORDERED: SUCCINYLCHOLINE 20 MG/ML, 10ML ONE (08:12)
[2020-06-27] MEDS ORDERED: DEXAMETHASONE 4 MG/ML, 1ML ONE (08:12)
[2020-06-27] MEDS ORDERED: ONDANSETRON 2MG/ML, 2ML ONE (08:12)
[2020-06-27] MEDS ORDERED: ROCURONIUM 10 MG/ML,10ML ONE (08:12)
[2020-06-27] MEDS ORDERED: LIDOCAINE 1%, 20ML ONE (08:29)
[2020-06-27] MEDS ORDERED: FENTANYL PF 100 MCG/2ML ONE (12:45)
[2020-06-27] MEDS ORDERED: METOPROLOL TARTRATE 50 MG TAB PO PRN (13:00)
[2020-06-27] MEDS: DABIGATRAN 150 MG CAPSULE PO SCH ×2 (13:20→21:55)
[2020-06-27] MEDS ORDERED: HYDROmorphone 1 MG/ML, 1ML INJ IVPush PRN (13:30)
[2020-06-27] MEDS ORDERED: LORazepam 2 MG/ML, 1ML IVPush PRN (13:30)
[2020-06-27] MEDS ORDERED: OXYcodone 5 MG/5 ML ORAL.SOL UDC PO PRN (13:30)
[2020-06-27] MEDS ORDERED: FENTANYL PF 100 MCG/2ML IV PRN (13:30)
[2020-06-27] MEDS ORDERED: LABETALOL 5MG/ML, 20ML IV PRN (13:30)
[2020-06-27] MEDS ORDERED: ONDANSETRON 2MG/ML, 2ML IVPush PRN (13:30)
[2020-06-27] MEDS ORDERED: PROMETHAZINE 25 MG/ML, 1ML IVPush PRN (13:30)
[2020-06-27] MEDS ORDERED: hydrALAzine 20 MG/ML, 1ML IV PRN (13:30)
[2020-06-27] MEDS ORDERED: MEPERIDINE/PF 25MG/0.5ML IVPush PRN (13:30)
[2020-06-27] MEDS ORDERED: DABIGATRAN 150 MG CAPSULE PO SCH ×3 (13:30→21:00)
[2020-06-27 14:20] VITALS: BP 97/57
[2020-06-27 18:58] VITALS: BP 90/59
[2020-06-27] MEDS: CARVEDILOL 12.5 MG TABLET PO SCH (21:00)
[2020-06-27] MEDS: FLECAINIDE 100MG TABLET PO SCH (21:00)
[2020-06-27] MEDS ORDERED: FLECAINIDE 50MG TABLET PO ONE (21:30)
[2020-06-27] MEDS: COLCHICINE 0.6 MG CAPSULE PO SCH (21:55)
[2020-06-28 02:09] VITALS: BP 104/72
[2020-06-28 05:18] LABS: CREATININE 0.71 mg/dL (0.55-1.02)
[2020-06-28 07:29] VITALS: BP 111/71
[2020-06-28] MEDS ORDERED: FLEC50TA25 PO (08:44)
[2020-06-28] MEDS ORDERED: COLC0.6C3 PO (08:44)
[2020-06-28] MEDS: COLCHICINE 0.6 MG CAPSULE PO SCH (08:54)
[2020-06-28] MEDS: FLECAINIDE 100MG TABLET PO SCH (08:54)
[2020-06-28] MEDS: CARVEDILOL 12.5 MG TABLET PO SCH (08:54)
[2020-06-28] MEDS: DABIGATRAN 150 MG CAPSULE PO SCH (08:54)
[2020-06-28] MEDS ORDERED: MULTIVITAMIN 1 TABLET PO SCH (09:00)
== END 2020-06-28 13:37 | disposition home or self-care (01) ==
LOC: CACL 05:41 → ORIP 12:20 → 5SO 13:58
PROVIDERS: ADMIT Internal Medicine Cardiovascular Disease; ATTEND Internal Medicine Cardiovascular Disease
DX: I48.4 Atypical atrial flutter (principal); I48.91 Unspecified atrial fibrillation; I10 Essential (primary) hypertension; F10.10 Alcohol abuse, uncomplicated; Z79.899 Other long term (current) drug therapy
CPT/HCPCS: 36415; 82565; 85347; 93308; 93312; 93321; 93325; 93613; 93655; 93656; 93657; 93662; C1730; C1732; C1759; C1766; C1894; G0378; J0330; J1100; J2250; J2405; J2704; J3010; J3490

== ENCOUNTER 2020-09-01 14:50 | Emergency (ER) | payer OTHER ==
[~2020-09-01] VITALS: Ht 165.1 cm; Wt 71.0 kg
[~2020-09-01 14:50] MED LIST changes: +CARV3.1212 PO; +COLC0.6C3 PO; +METO50TA82 PO; +MULT1TAB57 PO
[2020-09-01 14:53] VITALS: BP 17/84
[2020-09-01] MEDS ORDERED: BUPIVACAINE 0.25% ONE (15:28)
[2020-09-01] MEDS ORDERED: LIDOCAINE-MPF 1%, 5ML ONE (15:28)
[2020-09-01] MEDS ORDERED: BUPIVACAINE/PF 0.25% INFIL ONE (15:30)
[2020-09-01] MEDS ORDERED: LIDOCAINE-MPF 1%, 5ML INFIL ONE (15:30)
== END 2020-09-01 16:12 | disposition home or self-care (01) ==
LOC: ED 15:11
DX: S60.052A Contusion of left little finger without damage to nail, initial encounter (principal); S67.197A Crushing injury of left little finger, initial encounter; I10 Essential (primary) hypertension; I25.2 Old myocardial infarction; I48.91 Unspecified atrial fibrillation; W23.0XXA Caught, crushed, jammed, or pinched between moving objects, initial encounter; Y93.89 Activity, other specified; Y92.69 Other specified industrial and construction area as the place of occurrence of the external cause; Y99.0 Civilian activity done for income or pay
CPT/HCPCS: 64450; 99284

== ENCOUNTER 2020-10-08 15:48 | Emergency (ER) | payer OTHER ==
[~2020-10-08] VITALS: Ht 165.1 cm; Wt 70.0 kg
[2020-10-08] MEDS ORDERED: FAMOTIDINE 20 MG TABLET PO ONE (16:00)
[2020-10-08] MEDS ORDERED: DIPHENHYDRAMINE 25 MG CAPSULE PO ONE (16:00)
[2020-10-08] MEDS ORDERED: DIPHENHYDRAMINE 25 MG CAPSULE ONE (16:04)
[2020-10-08] MEDS ORDERED: FAMOTIDINE 20 MG TABLET ONE (16:04)
[2020-10-08 17:13] VITALS: BP 151/84
== END 2020-10-08 17:24 | disposition home or self-care (01) ==
LOC: ED 17:15
DX: J30.89 Other allergic rhinitis (principal); R42 Dizziness and giddiness; J02.9 Acute pharyngitis, unspecified; R05 Cough; I10 Essential (primary) hypertension; I48.91 Unspecified atrial fibrillation; I25.2 Old myocardial infarction
CPT/HCPCS: 99284; J7512; Q0163

== ENCOUNTER 2020-11-25 09:54 | Emergency (ER) | payer OTHER ==
[~2020-11-25] VITALS: Ht 165.1 cm; Wt 68.2 kg
--- NOTE | 2020-11-25 10:14 | NUR ---
TASK RN AT BS. LAB AT BS
[2020-11-25] MEDS ORDERED: LOSA25TA12 PO (10:18)
--- NOTE | 2020-11-25 10:18 | NUR ---
PT REPORT FROM CHRISTIANO GARCIA. PT CARE TO BE ASSUMED.
[2020-11-25 10:27] LABS: BASOPHILS % (AUTO) 2 % (0-1); EOSINOPHILS % (AUTO) 2 % (1-7); LYMPHOCYTES % (AUTO) 34 % (22-44); MEAN PLATELET VOLUME 9.4 fL (7.4-10.4); MONOCYTES % (AUTO) 11 % (2-9); NEUTROPHILS % (AUTO) 52 % (42-75); PLATELET COUNT 197 x10^3/uL (130-400); RED BLOOD COUNT 4.36 x10^6/uL (3.82-5.3); RED CELL DISTRIBUTION WIDTH 13.8 % (9.6-15.2)
[2020-11-25 10:33] LABS: MD NO
[2020-11-25 10:40] LABS: ALBUMIN 3.9 g/dL (3.4-5.0); ANION GAP 7 mmol/L (5-15); CALCIUM 9.5 mg/dL (8.5-10.1); CHLORIDE 105 mmol/L (98-107); CREATININE 0.84 mg/dL (0.55-1.02)
--- NOTE | 2020-11-25 10:40 | NUR ---
PT RESTING QUIETLY ON GURNEY, MONITORING IN PROGRESS: NSR, RESP EVEN & UNLABORED, SPEECH CLEAR, SKIN WNL. DENIES CP CURRENTLY. STATES "I CAN FEEL THE RATE CHANGING" RATE CURRENTLY STEADY AT 75. SIDE RAILS UP X2, CALL LIGHT W/IN REACH.
[2020-11-25 11:00] VITALS: BP 125/81
--- NOTE | 2020-11-25 11:02 | NUR ---
AMBULATORY TO & FROM WOOD BR W/OUT INCIDENT: GAIT STEADY. MONITORING EQUIPMENT REAPPLIED. BLANKETS PROVIDED. SIDE RAIL UP X1, CALL LIGHT W/IN REACH.
== END 2020-11-25 12:00 | disposition home or self-care (01) ==
LOC: ED 10:31
DX: R00.2 Palpitations (principal); I49.1 Atrial premature depolarization; R94.31 Abnormal electrocardiogram [ECG] [EKG]; R42 Dizziness and giddiness; I10 Essential (primary) hypertension; I48.91 Unspecified atrial fibrillation; I25.2 Old myocardial infarction
CPT/HCPCS: 36415; 80048; 82040; 83735; 85025; 93005; 99284

== ENCOUNTER → 2021-01-02 | Outpatient (CLI) | payer OTHER ==
[~2021-01-02] MED LIST changes: -ASPI-515 PO; +ASPI-963 PO; +LOSA25TA12 PO
[2021-01-02 10:33] LABS: BASOPHILS % (AUTO) 1 % (0-1); EOSINOPHILS % (AUTO) 3 % (1-7); LYMPHOCYTES % (AUTO) 39 % (22-44); MEAN CORPUSCULAR HEMOGLOBIN 30.2 pg (27.0-34.8); MEAN CORPUSCULAR HGB CONC 33.2 g/dL (32.4-35.8); MEAN PLATELET VOLUME 9.1 fL (7.4-10.4); MONOCYTES % (AUTO) 10 % (2-9); NEUTROPHILS % (AUTO) 47 % (42-75); PLATELET COUNT 192 x10^3/uL (130-400); RED BLOOD COUNT 4.39 x10^6/uL (3.82-5.3); RED CELL DISTRIBUTION WIDTH 13.9 % (9.6-15.2)
[2021-01-02 10:36] LABS: MD NO
[2021-01-02 10:39] LABS: ALBUMIN 3.8 g/dL (3.4-5.0); ANION GAP 6 mmol/L (5-15); CALCIUM 8.5 mg/dL (8.5-10.1); CHLORIDE 107 mmol/L (98-107)
[2021-01-02 10:48] LABS: ALANINE AMINOTRANSFERASE 20 U/L (12-78); ALKALINE PHOSPHATASE 63 U/L (45-117); BILIRUBIN,TOTAL 0.5 mg/dL (0.2-1.0); CHOL/HDL RATIO 2.1; CHOLESTEROL, TOTAL 223 mg/dL (140-239); CREATININE 0.81 mg/dL (0.55-1.02); HDL CHOL % 47 % (28-40); HDL CHOLESTEROL (DIRECT) 104 mg/dL (40-60); LDL CHOLESTEROL,CALCULATED 110 mg/dL (54-169); LDL/HDL RATIO 1.1 (0.5-3.0); T4 (THYROXINE) 7.9 mcg/dL (4.8-13.9); TOTAL PROTEIN 6.9 g/dL (6.4-8.2); TRIGLYCERIDES 46 mg/dL (50-200); VLDL CHOLESTEROL 9 mg/dL (0-25)
== END | disposition home or self-care (01) ==
LOC: LAB 10:15
PROVIDERS: ATTEND Internal Medicine Cardiovascular Disease
DX: I10 Essential (primary) hypertension (principal); I48.0 Paroxysmal atrial fibrillation
CPT/HCPCS: 36415; 80053; 80061; 84436; 84443; 84481; 85025

== ENCOUNTER → 2021-02-27 | Outpatient (CLI) | payer OTHER ==
[~2021-02-27] MED LIST changes: -MULT1TAB57 PO; +MULT1TAB58 PO
[2021-02-27 10:43] LABS: BASOPHILS % (AUTO) 1 % (0-1); EOSINOPHILS % (AUTO) 3 % (1-7); LYMPHOCYTES % (AUTO) 32 % (22-44); MEAN CORPUSCULAR HEMOGLOBIN 30.5 pg (27.0-34.8); MEAN CORPUSCULAR HGB CONC 33.7 g/dL (32.4-35.8); MEAN PLATELET VOLUME 9.1 fL (7.4-10.4); MONOCYTES % (AUTO) 9 % (2-9); NEUTROPHILS % (AUTO) 56 % (42-75); PLATELET COUNT 188 x10^3/uL (130-400); RED BLOOD COUNT 4.57 x10^6/uL (3.82-5.3); RED CELL DISTRIBUTION WIDTH 14.1 % (9.6-15.2)
[2021-02-27 10:44] LABS: MD NO
[2021-02-27 10:52] LABS: ALBUMIN 3.7 g/dL (3.4-5.0); ANION GAP 8 mmol/L (5-15); CALCIUM 8.6 mg/dL (8.5-10.1); CHLORIDE 113 mmol/L (98-107)
[2021-02-27 11:01] LABS: % IRON SATURATION 22 % (20-55); ALANINE AMINOTRANSFERASE 23 U/L (12-78); ALKALINE PHOSPHATASE 60 U/L (45-117); BILIRUBIN,TOTAL 0.5 mg/dL (0.2-1.0); CHOL/HDL RATIO 2.3; CHOLESTEROL, TOTAL 239 mg/dL (140-239); CREATININE 0.72 mg/dL (0.55-1.02); HDL CHOL % 43 % (28-40); HDL CHOLESTEROL (DIRECT) 102 mg/dL (40-60); IRON LEVEL 81 mcg/dL (50-170); LDL CHOLESTEROL,CALCULATED 127 mg/dL (54-169); LDL/HDL RATIO 1.2 (0.5-3.0); TOTAL IRON BINDING CAPACITY 376 mcg/dL (250-450); TOTAL PROTEIN 7.3 g/dL (6.4-8.2); TRIGLYCERIDES 49 mg/dL (50-200); VLDL CHOLESTEROL 10 mg/dL (0-25)
[2021-02-27 11:22] LABS: HCT (SEDRATE) 41.4 % (34.6-47.8)
== END | disposition home or self-care (01) ==
LOC: LAB 10:23
PROVIDERS: ATTEND Nurse Practitioner Family
DX: Z00.01 Encounter for general adult medical examination with abnormal findings (principal); H10.13 Acute atopic conjunctivitis, bilateral; J30.1 Allergic rhinitis due to pollen; I10 Essential (primary) hypertension; R53.83 Other fatigue
CPT/HCPCS: 36415; 80053; 80061; 82306; 82533; 82728; 82785; 83540; 83550; 84443; 85025; 85651

== ENCOUNTER 2021-03-30 06:09 | Emergency (ER) | payer OTHER ==
[~2021-03-30] VITALS: Ht 165.1 cm; Wt 72.3 kg
--- NOTE | 2021-03-30 06:58 | NUR ---
PT WOKE UP TODAY WITH RIGHT SIDED BURING BACK PAIN AND CHEST DISCOMFORT INCLUDING SOB. PT SPEAKING IN FULL SENTENCES, ABLE TO DRESS SELF AND LAY IN GURNEY. EKG DONE, PT PLACED ON ALL MONITORS, PIV PLACED, LABS DRAWN, NO OTHER NEEDS AT THIS TIME. REPORT GIVEN TO CHRISTIANO SIMS
[2021-03-30] MEDS ORDERED: LABETALOL 5MG/ML, 20ML IVPush ONE (07:00)
[2021-03-30 07:11] LABS: BASOPHILS % (AUTO) 1 % (0-1); EOSINOPHILS % (AUTO) 4 % (1-7); LYMPHOCYTES % (AUTO) 41 % (22-44); MEAN CORPUSCULAR HEMOGLOBIN 30.5 pg (27.0-34.8); MEAN CORPUSCULAR HGB CONC 33.5 g/dL (32.4-35.8); MEAN PLATELET VOLUME 9.4 fL (7.4-10.4); MONOCYTES % (AUTO) 10 % (2-9); NEUTROPHILS % (AUTO) 44 % (42-75); PLATELET COUNT 207 x10^3/uL (130-400); RED BLOOD COUNT 4.57 x10^6/uL (3.82-5.3); RED CELL DISTRIBUTION WIDTH 14.5 % (9.6-15.2)
[2021-03-30 07:15] LABS: MD NO
--- NOTE | 2021-03-30 07:15 | NUR ---
REPORT RECEIVED FROM AVTAR ALVARADO.
[2021-03-30 07:21] LABS: ALANINE AMINOTRANSFERASE 24 U/L (12-78); ALBUMIN 3.8 g/dL (3.4-5.0); ANION GAP 5 mmol/L (5-15); CHLORIDE 107 mmol/L (98-107)
[2021-03-30 07:25] LABS: ALKALINE PHOSPHATASE 62 U/L (45-117); BILIRUBIN,TOTAL 0.2 mg/dL (0.2-1.0); TOTAL PROTEIN 7.5 g/dL (6.4-8.2); TROPONIN I < 0.015 ng/mL (0.000-0.045)
[2021-03-30] MEDS ORDERED: OMNIPAQUE 350 MG/ML, 75ML BOTTLE ONE (07:30)
--- NOTE | 2021-03-30 07:30 | NUR ---
PT IN IMAGING
--- NOTE | 2021-03-30 08:04 | NUR ---
ALL RESULTS ARE IN. PT UP FOR RECHECK
[2021-03-30 08:05] VITALS: BP 144/87
== END 2021-03-30 09:42 | disposition home or self-care (01) ==
LOC: ED 08:43
DX: I10 Essential (primary) hypertension (principal); R07.89 Other chest pain; I48.91 Unspecified atrial fibrillation; I25.2 Old myocardial infarction; M54.6 Pain in thoracic spine
CPT/HCPCS: 36415; 71275; 80053; 83880; 84484; 85025; 93005; 99285; Q9967